=== PATIENT | male | born 1970 | race Two or more races ===

== ENCOUNTER 2017-04-28 22:12 | Emergency (ER) | payer MEDICAID ==
[~2017-04-28] VITALS: Ht 167.6 cm; Wt 77.1 kg
[~2017-04-28 22:12] MED LIST: NOVOLIN R100 UNIT/1 SUBQ
[2017-04-28] MEDS ORDERED: UNOBMED (22:37)
[2017-04-28] MEDS: Lidocaine 1% 10mg/ml/Epi 0.005mg/ml 30ml vial INJ ONE (23:55)
[2017-04-29] MEDS ORDERED: DOXYCYCLINE MO100 MG ORAL (00:36)
[2017-04-29] MEDS ORDERED: KEFLEX500 MG ORAL (00:36)
[2017-04-29 00:50] VITALS: BP 105/68
--- NOTE | 2017-04-29 01:26 | Emergency Room Report ---
History of Present Illness General Chief Complaint: Skin Rash/Abscess Source: Patient Present Illness HPI Patient is a 47-year-old male who presented after increased pain and swelling. Patient noted increased discomfort. He denied any fever. Not been having any increased blood sugar. He denied any other locations of pain. He had prior history of psoriasis. The patient stated this occurred over one day Allergies: Coded Allergies: No Known Allergies (Unverified , 02/18/16) Patient History Reviewed Nursing Documentation: PMH: Agreed, PSxH: Agreed Nursing Documentation-PMH Hx Diabetes: Yes Review of Systems All Other Systems: negative except mentioned in HPI Physical Exam Vital Signs Date Time Temp Pulse Resp B/P (MAP) Pulse Ox O2 Delivery O2 Flow Rate FiO2 04/28/17 22:32 99.2 110 16 105/68 96 Room Air 99.1 General Appearance: well appearing, no apparent distress, alert, GCS 15 Head: normocephalic, atraumatic ENT: hearing grossly normal, normal voice Neck: full range of motion, supple Respiratory: no respiratory distress, speaking full sentences Cardiovascular #1: normal inspection, no edema Musculoskeletal: no calf tenderness Neurologic: normal inspection, alert, oriented x3, responsive, hat blocker III-XII nml as tested, normal gait Psychiatric: mood/affect normal Skin: no rash, rash - generalized plaque lesions, right buttock swelling and induration Procedures Incision and Drainage Incision and Drainage : Site: right buttock Blade Size: 11 I & D Procedure: betadine prep, sterile drapes applied Wound Location: other - buttock Wound's Depth, Shape: superficial Wound Length (cm): 1 Wound Explored: clean Anesthesia: Lidocaine w/ Epi Volume Anesthetic (ccs): 5 Patient Tolerated: Well Complications: None Medical Decision Making Diagnostic Impression: Primary Impression: Abscess Additional Impressions: Psoriasis Diabetes ER Course Patient presented for skin rash. Differential diagnosis included was not limited to abscess, cellulitis, folliculitis, Fourniere's gangrene. Patient has a benign exam and does not appear to require any further imaging or laboratory testing at this time. The patient's abscess was incised and drained with large amount purulent drainage.Patient was given prescription for oral antibiotics Keflex and doxycycline. The patient is advised to take over-the- counter pain medications.The patient is advised to follow up with primary care doctor in 1-2 days for wound recheck. Patient is advised to return if any worsening condition or if any changes in status that are concerning. This report is dictated with [employer] principal engineer software which may occasionally lead to discrepancies related to use of this software. Last Vital Signs Date Time Temp Pulse Resp B/P (MAP) Pulse Ox O2 Delivery O2 Flow Rate FiO2 04/29/17 00:50 99.1 16 105/68 96 Room Air 99.1 04/28/17 22:32 110 Status: improved Disposition: HOME, SELF-CARE Condition: Stable Scripts Cephalexin* (KEFLEX*) 500 Mg Capsule 500 MG ORAL Q6H, #28 CAP 0 Refills Prov: Zander Jacinto 04/29/17 Doxycycline Monohydrate* (DOXYCYCLINE MONOHYDRATE*) 100 Mg Capsule 100 MG ORAL Q12H, #14 CAP 0 Refills Prov: Zander Jacinto 04/29/17 Patient Instructions: Zander Ambrocio Apr 29, 2017 01:26
== END 2017-04-29 01:18 | disposition home or self-care (01) ==
LOC: EMR 23:15
DX: L02.31 Cutaneous abscess of buttock (principal); L40.9 Psoriasis, unspecified; E11.9 Type 2 diabetes mellitus without complications
CPT/HCPCS: 10060; 99284